=== PATIENT | female | born 1965 ===

== ENCOUNTER 2019-09-25 09:10 | Emergency (ER) | payer SELFPAY ==
[2019-09-25] MEDS ORDERED: Cyclobenzaprine 10 MG TAB ONE (09:32)
[2019-09-25] MEDS ORDERED: Ketorolac Tromethamine 30 MG/ML VIAL ONE (09:32)
== END 2019-09-25 09:53 | disposition home or self-care (01) ==
LOC: ERS 09:10
DX: S39.012A Strain of muscle, fascia and tendon of lower back, initial encounter (principal); R73.03 Prediabetes; J45.909 Unspecified asthma, uncomplicated; Z79.899 Other long term (current) drug therapy; X50.1XXA Overexertion from prolonged static or awkward postures, initial encounter
CPT/HCPCS: 96372; 99283; J1885